=== PATIENT | female | born 1945 ===

== ENCOUNTER 2025-04-22 09:00 | Day surgery (SDC) | payer OTHER ==
[2025-04-21 11:56] VITALS: BP 160/80
[~2025-04-22] VITALS: Ht 149.9 cm; Wt 77.1 kg
[~2025-04-22 09:00] MED LIST: CALTRATE 600+D1 EAC1; CELEBREX; CLARINEX; FOSAMAX70 MG; LEVALBUTEROL; LOSARTAN POTASS50 MG; LYRICA100 MG; PRESERVISION A1 EAC1; SYNTHROID50 MCG; TRELEGY; VENTOLIN; [UNRECOGNIZED DRUG - OTHER]
[2025-04-22] MEDS ORDERED: LIDOCAINE HCL 1%/EPINEPHRINE 20ML VIAL IJ ONE ×2 (17:04→18:30)
[2025-04-22] MEDS ORDERED: KETOROLAC TROMETHAMINE 30 MG VIAL ONE (17:05)
[2025-04-22] MEDS ORDERED: BUPIVACAINE HCL/Mpf 0.5% 10ML VIAL ONE (17:05)
[2025-04-22] MEDS ORDERED: EPINEPHRINE HCL/PF 1 MG/ML AMPUL ONE ×2 (17:57→18:16)
[2025-04-22] MEDS ORDERED: MORPHINE SULFATE 4 MG/ML CARTRIDGE IV ONE (18:45)
[2025-04-22] MEDS ORDERED: SUGAMMADEX SODIUM 200 MG/2 ML VIAL IV ONE (19:07)
[2025-04-22] MEDS ORDERED: DUI500 PO (19:24)
[2025-04-22] MEDS ORDERED: ACETAMINOPHEN-1 EAC2 PO (19:28)
[2025-04-22] MEDS ORDERED: CEFAZOLIN SODIUM 1,000 MG VIAL IV ONE (19:30)
[2025-04-22] MEDS ORDERED: hydrALAZINE HCL 20 MG VIAL ONE (20:37)
[2025-04-22] MEDS ORDERED: CEFADROXIL 500 MG CAPSULE PO SCH (21:00)
== END 2025-04-22 22:30 | disposition home or self-care (01) ==
LOC: CIR.AMB 09:00
PROVIDERS: ATTEND Orthopaedic Surgery Sports Medicine
DX: M75.122 Complete rotator cuff tear or rupture of left shoulder, not specified as traumatic (principal); M19.012 Primary osteoarthritis, left shoulder; M94.212 Chondromalacia, left shoulder; M75.22 Bicipital tendinitis, left shoulder